=== PATIENT | female | born 1975 | race Caucasian/White ===

== ENCOUNTER 2024-01-15 01:02 | Emergency (ER) | payer OTHER ==
[~2024-01-15] VITALS: Ht 170.2 cm; Wt 100.0 kg
[2024-01-15 01:06] VITALS: TEMP 97.6
[2024-01-15 02:00] VITALS: BP 120/69; PULSE 85; RESP 18; O2SAT 97
[2024-01-15 02:16] LABS: BASOPHILS % (AUTO) 0.6 % (0.0-2.0); EOSINOPHILS % (AUTO) 2.3 % (1.0-6.0); HEMATOCRIT 41.5 % (36-46); HEMOGLOBIN 13.6 g/dL (12.0-16.0); LYMPHOCYTES # (AUTO) 1.7 K/uL (1.0-4.8); LYMPHOCYTES % (AUTO) 25.3 % (22.0-44.0); MEAN CORPUSCULAR HEMOGLOBIN 31.2 pg (26.0-34.0); MEAN CORPUSCULAR HGB CONC 32.9 G/dL (31.0-37.0); MEAN CORPUSCULAR VOLUME 95 fL (80-100); MONOCYTES # (AUTO) 0.6 K/uL (0.1-1.0); MONOCYTES % (AUTO) 8.5 % (2.0-9.0); NEUTROPHILS # (AUTO) 4.4 K/uL (1.8-7.7); NEUTROPHILS % (AUTO) 63.3 % (40.0-70.0); PLATELET COUNT (AUTO) 254 K/uL (150-450); RED BLOOD CELL COUNT(AUTO) 4.38 MIL/uL (4.00-5.20); RED CELL DISTRIBUTION WIDTH 13.2 % (11.5-14.5); WHITE BLOOD COUNT (AUTO) 6.9 K/uL (4.5-11.0)
[2024-01-15 02:32] LABS: ANION GAP 11 mmol/L (8-16); CARBON DIOXIDE 22 mmol/L (22-29); CHLORIDE 105 mmol/L (98-107); CREATININE 1.07 mg/dL (0.60-1.30); GLOMERULAR FILTR. RATE CALC 54 mL/min (>60); GLUCOSE,RANDOM 93 mg/dL (70-110); POTASSIUM 3.7 mmol/L (3.5-5.1); SODIUM SERUM 138 mmol/L (136-145); UREA NITROGEN, BLOOD 16 mg/dL (7-18)
[2024-01-15 02:42] LABS: ALCOHOL, BLOOD (SERUM) < 3 mg/dL (0-10)
[2024-01-15] MEDS: LORazepam 2 MG TABLET PO ONE (02:50)
== END 2024-01-15 03:28 | disposition home or self-care (01) ==
LOC: EMS 01:04
DX: F32.9 Major depressive disorder, single episode, unspecified (principal); R45.851 Suicidal ideations; Q87.3 Congenital malformation syndromes involving early overgrowth; F17.210 Nicotine dependence, cigarettes, uncomplicated; F12.90 Cannabis use, unspecified, uncomplicated; Z88.5 Allergy status to narcotic agent; Z88.6 Allergy status to analgesic agent; Z91.041 Radiographic dye allergy status
CPT/HCPCS: 99284; 80048; 85025; 36415; G0480

== ENCOUNTER 2024-01-23 08:06 | Emergency (ER) | payer OTHER ==
[~2024-01-23] VITALS: Ht 172.7 cm; Wt 104.5 kg
[2024-01-23 08:20] VITALS: BP 115/64; PULSE 98; RESP 18; TEMP 98; O2SAT 98
[2024-01-23] MEDS: IBUPROFEN 600 MG TABLET PO ONE (11:59)
[2024-01-23] MEDS ORDERED: IBUP-1492 PO (12:13)
== END 2024-01-23 12:24 | disposition home or self-care (01) ==
LOC: EMS 08:06
DX: M79.18 Myalgia, other site (principal); F17.210 Nicotine dependence, cigarettes, uncomplicated; Z88.5 Allergy status to narcotic agent; Z88.6 Allergy status to analgesic agent; Z91.041 Radiographic dye allergy status
CPT/HCPCS: 99282; Z7502; Z7610

== ENCOUNTER → 2024-02-25 | Emergency (ER) | payer OTHER ==
[~2024-02-25] VITALS: Ht 170.2 cm; Wt 100.0 kg
[~2024-02-25] MED LIST: BUPR-562 PO; CLOT15CR29 TP; IBUP-1492 PO
[2024-02-25 08:49] LABS: COVID AG,FIA SOURCE NASAL SWAB
[2024-02-25 09:23] LABS: SARS-COV2 (COVID) ANTIGEN,FIA Negative (Negative)
[2024-02-25 09:24] LABS: INFLUENZA TYPE A NEGATIVE FOR TYPE A (NEGATIVE); INFLUENZA TYPE B NEGATIVE FOR TYPE B (NEGATIVE)
[2024-02-25 09:45] VITALS: BP 112/74; PULSE 94; RESP 18; TEMP 97.6; O2SAT 97
== END | disposition still patient (30) ==
LOC: EMS 08:22
DX: L30.4 Erythema intertrigo (principal); F17.210 Nicotine dependence, cigarettes, uncomplicated; G25.81 Restless legs syndrome; Z88.5 Allergy status to narcotic agent; Z88.8 Allergy status to other drugs, medicaments and biological substances; Z91.041 Radiographic dye allergy status; Z91.040 Latex allergy status; Z20.822 Contact with and (suspected) exposure to COVID-19
CPT/HCPCS: 87804; 99283

== ENCOUNTER 2024-04-07 11:25 | Emergency (ER) | payer OTHER ==
[~2024-04-07] VITALS: Ht 170.2 cm; Wt 104.5 kg
[~2024-04-07 11:25] MED LIST changes: -IBUP-1492 PO
[2024-04-07 11:39] VITALS: TEMP 97.9
[2024-04-07] MEDS: KETOROLAC TROMETHAMINE 30 MG/ML VIAL IM ONE (12:38)
[2024-04-07] MEDS: LIDOCAINE 5% TRANSDERMAL PATCH TD ONE (12:38)
[2024-04-07] MEDS ORDERED: BACL10TA PO (13:01)
[2024-04-07 13:15] VITALS: BP 125/63; PULSE 74; RESP 16; O2SAT 97
== END 2024-04-07 13:25 | disposition home or self-care (01) ==
LOC: EMS 11:31
DX: M54.50 Low back pain, unspecified (principal); Z88.5 Allergy status to narcotic agent; Z88.8 Allergy status to other drugs, medicaments and biological substances; Z91.041 Radiographic dye allergy status; Z79.899 Other long term (current) drug therapy
CPT/HCPCS: 99283; 96372; J1885

== ENCOUNTER 2024-04-16 12:47 | Emergency (ER) | payer OTHER ==
[~2024-04-16] VITALS: Ht 172.7 cm; Wt 100.0 kg
[~2024-04-16 12:47] MED LIST changes: +BACL10TA PO
[2024-04-16 12:56] VITALS: BP 116/41; PULSE 82; RESP 18; TEMP 97.8; O2SAT 98
[2024-04-16 15:42] LABS: BASOPHILS % (AUTO) 0.6 % (0.0-2.0); EOSINOPHILS % (AUTO) 5.5 % (1.0-6.0); HEMATOCRIT 40.5 % (36-46); HEMOGLOBIN 13.4 g/dL (12.0-16.0); LYMPHOCYTES # (AUTO) 1.4 K/uL (1.0-4.8); LYMPHOCYTES % (AUTO) 21.2 % (22.0-44.0); MEAN CORPUSCULAR HEMOGLOBIN 31.2 pg (26.0-34.0); MEAN CORPUSCULAR HGB CONC 33.1 G/dL (31.0-37.0); MEAN CORPUSCULAR VOLUME 94 fL (80-100); MONOCYTES # (AUTO) 0.6 K/uL (0.1-1.0); NEUTROPHILS # (AUTO) 4.2 K/uL (1.8-7.7); NEUTROPHILS % (AUTO) 63.7 % (40.0-70.0); PLATELET COUNT (AUTO) 264 K/uL (150-450); RED CELL DISTRIBUTION WIDTH 12.7 % (11.5-14.5); WHITE BLOOD COUNT (AUTO) 6.6 K/uL (4.5-11.0)
[2024-04-16 15:53] LABS: CALCIUM, TOTAL 8.9 mg/dL (8.8-10.5); CREATININE 1.08 mg/dL (0.60-1.30)
[2024-04-16 16:00] LABS: TROPONIN I-HIGH SENSITIVITY 5 ng/L (<51)
[2024-04-16] MEDS: KETOROLAC TROMETHAMINE 30 MG/ML VIAL IM ONE (16:00)
[2024-04-16 16:11] LABS: APPEARANCE,URINE CLEAR (CLEAR); BILIRUBIN,URINE NEGATIVE (NEGATIVE); COLOR,URINE LIGHT YELLOW (YELLOW); GLUCOSE, URINE (UA) NEGATIVE (NEGATIVE); KETONES,URINE NEGATIVE (NEGATIVE); LEUKOCYTE ESTERASE ,URINE TRACE (NEGATIVE); NITRATE,URINE NEGATIVE (NEGATIVE); OCCULT BLOOD,URINE NEGATIVE (NEGATIVE); PROTEIN,URINE NEGATIVE (NEGATIVE); SPECIFIC GRAVITIY, URINE 1.016 (1.003-1.030); UROBILINOGEN,URINE <=1.0 mg/dL (<=1.0)
[2024-04-16 16:23] LABS: BACTERIA,URINE Rare /HPF (None Seen); RBC,URINE None Seen /HPF (0-2); SQUAMOUS EPITHELIAL CELL,UR Rare /LPF (None Seen)
[2024-04-16] MEDS ORDERED: IBUP-1492 PO (16:39)
[2024-04-16] MEDS ORDERED: CEPH-558 PO (16:39)
== END 2024-04-16 16:58 | disposition home or self-care (01) ==
LOC: EMS 12:47
DX: M77.9 Enthesopathy, unspecified (principal); N39.0 Urinary tract infection, site not specified; F17.210 Nicotine dependence, cigarettes, uncomplicated; Z88.5 Allergy status to narcotic agent; Z88.8 Allergy status to other drugs, medicaments and biological substances; Z91.041 Radiographic dye allergy status; Z79.899 Other long term (current) drug therapy
CPT/HCPCS: 99283; 80048; 81001; 83690; 84484; 85025; 36415; 96372; J1885

== ENCOUNTER 2024-04-23 14:00 | Emergency (ER) | payer OTHER ==
[~2024-04-23] VITALS: Ht 167.6 cm; Wt 86.0 kg
[~2024-04-23 14:00] MED LIST changes: -BACL10TA PO; +CEPH-558 PO; -CLOT15CR29 TP; +IBUP-1492 PO
[2024-04-23 14:04] VITALS: BP 127/68; PULSE 102; RESP 16; TEMP 98.5; O2SAT 98
[2024-04-23 14:15] LABS: COVID AG,FIA SOURCE NASAL SWAB
[2024-04-23] MEDS ORDERED: BuPROPion HCL 75 MG TABLET PO ONE (14:45)
[2024-04-23 14:55] LABS: INFLUENZA TYPE A NEGATIVE FOR TYPE A (NEGATIVE); INFLUENZA TYPE B NEGATIVE FOR TYPE B (NEGATIVE); SARS-COV2 (COVID) ANTIGEN,FIA Negative (Negative)
[2024-04-23] MEDS: LORazepam 1 MG TABLET PO ONE (14:59)
[2024-04-23] MEDS: BuPROPion HCL XL 150 MG ER TABLET PO ONE (15:00)
== END 2024-04-23 15:59 | disposition home or self-care (01) ==
LOC: EMS 14:00
DX: F41.9 Anxiety disorder, unspecified (principal); F17.210 Nicotine dependence, cigarettes, uncomplicated; Z79.899 Other long term (current) drug therapy; Z88.5 Allergy status to narcotic agent; Z88.8 Allergy status to other drugs, medicaments and biological substances; Z91.041 Radiographic dye allergy status; Z91.040 Latex allergy status; Z20.822 Contact with and (suspected) exposure to COVID-19
CPT/HCPCS: 87804; 99283

== ENCOUNTER 2024-05-11 14:50 | Emergency (ER) | payer OTHER ==
[~2024-05-11] VITALS: Ht 170.2 cm; Wt 104.5 kg
[2024-05-11 14:55] VITALS: TEMP 98.5
[2024-05-11] MEDS ORDERED: DULO-114 PO (14:58)
[2024-05-11 15:11] LABS: COVID AG,FIA SOURCE NASAL SWAB
[2024-05-11 15:43] LABS: SARS-COV2 (COVID) ANTIGEN,FIA Negative (Negative)
[2024-05-11 15:47] LABS: INFLUENZA TYPE A NEGATIVE FOR TYPE A (NEGATIVE); INFLUENZA TYPE B NEGATIVE FOR TYPE B (NEGATIVE)
[2024-05-11 17:00] VITALS: BP 132/74; PULSE 93; RESP 20; O2SAT 99
[2024-05-11] MEDS: KETOROLAC TROMETHAMINE 60 MG/2 ML VIAL IM ONE (17:17)
[2024-05-11] MEDS: ACETAMINOPHEN/CODEINE 300-30 MG TABLET PO ONE (17:17)
[2024-05-11] MEDS ORDERED: IBUP-1554 PO (17:20)
[2024-05-11] MEDS ORDERED: GUAIFDM PO (17:20)
[2024-05-11] MEDS ORDERED: ACET-2080 PO (17:20)
[2024-05-11] MEDS ORDERED: OMEP20 PO (17:20)
== END 2024-05-11 17:44 | disposition home or self-care (01) ==
LOC: EMS 14:50
DX: G44.091 Other trigeminal autonomic cephalgias (TAC), intractable (principal); J20.9 Acute bronchitis, unspecified; R05.9 Cough, unspecified; Z88.5 Allergy status to narcotic agent; Z88.8 Allergy status to other drugs, medicaments and biological substances; Z91.041 Radiographic dye allergy status; Z79.899 Other long term (current) drug therapy; Z20.822 Contact with and (suspected) exposure to COVID-19
CPT/HCPCS: 99283; 87426; 87804; 96372; J1885

== ENCOUNTER 2024-07-15 09:25 | Emergency (ER) | payer OTHER ==
[~2024-07-15] VITALS: Ht 170.2 cm; Wt 104.5 kg
[~2024-07-15 09:25] MED LIST changes: +ACET-2080 PO; -CEPH-558 PO; +DULO-114 PO; +GUAIFDM PO; -IBUP-1492 PO; +IBUP-1554 PO; +OMEP-148 PO
[2024-07-15 09:30] VITALS: TEMP 98.2
[2024-07-15] MEDS ORDERED: METH-659 PO (10:55)
[2024-07-15 11:05] VITALS: BP 125/69; PULSE 71; RESP 17; O2SAT 99
[2024-07-15] MEDS: GuaiFENesin/D-METHORPHAN [SUGAR-FREE] 200-20MG/10 ML SYRUP UDCUP PO ONE (11:14)
[2024-07-15] MEDS: KETOROLAC TROMETHAMINE 60 MG/2 ML VIAL IM ONE (11:15)
[2024-07-15] MEDS: METHOCARBAMOL 500 MG TABLET PO ONE (11:15)
== END 2024-07-15 12:20 | disposition home or self-care (01) ==
LOC: EMS 09:31
DX: S20.212A Contusion of left front wall of thorax, initial encounter (principal); J40 Bronchitis, not specified as acute or chronic; F41.9 Anxiety disorder, unspecified; F32.A Depression, unspecified; F17.210 Nicotine dependence, cigarettes, uncomplicated; F12.90 Cannabis use, unspecified, uncomplicated; G25.81 Restless legs syndrome; Z79.899 Other long term (current) drug therapy; Z88.5 Allergy status to narcotic agent; Z88.8 Allergy status to other drugs, medicaments and biological substances; Z91.041 Radiographic dye allergy status; X58.XXXA Exposure to other specified factors, initial encounter; Y93.89 Activity, other specified; Y92.89 Other specified places as the place of occurrence of the external cause; Y99.8 Other external cause status
CPT/HCPCS: 99283; 71101; 96372; J1885

== ENCOUNTER 2024-08-04 13:13 | Emergency (ER) | payer OTHER ==
[~2024-08-04] VITALS: Ht 172.7 cm; Wt 102.3 kg
[~2024-08-04 13:13] MED LIST changes: -ACET-2080 PO; +METH-659 PO
[2024-08-04 13:17] VITALS: TEMP 98.6
[2024-08-04 13:48] LABS: COVID AG,FIA SOURCE NASAL SWAB
[2024-08-04 13:59] VITALS: BP 153/78; PULSE 103; RESP 18; O2SAT 97
[2024-08-04 14:40] LABS: SARS-COV2 (COVID) ANTIGEN,FIA Negative (Negative)
[2024-08-04 14:41] LABS: INFLUENZA TYPE A NEGATIVE FOR TYPE A (NEGATIVE); INFLUENZA TYPE B NEGATIVE FOR TYPE B (NEGATIVE)
[2024-08-04] MEDS ORDERED: FLUT16SP NASAL (15:44)
== END 2024-08-04 16:06 | disposition home or self-care (01) ==
LOC: EMS 13:15
DX: H65.92 Unspecified nonsuppurative otitis media, left ear (principal); H72.92 Unspecified perforation of tympanic membrane, left ear; F41.9 Anxiety disorder, unspecified; F32.A Depression, unspecified; F12.90 Cannabis use, unspecified, uncomplicated; F17.210 Nicotine dependence, cigarettes, uncomplicated; Z91.041 Radiographic dye allergy status; Z88.5 Allergy status to narcotic agent; Z88.8 Allergy status to other drugs, medicaments and biological substances; Z79.899 Other long term (current) drug therapy; Z72.89 Other problems related to lifestyle; Z20.822 Contact with and (suspected) exposure to COVID-19
CPT/HCPCS: 87804; 99283

== ENCOUNTER 2024-08-06 18:42 | Emergency (ER) | payer OTHER ==
[~2024-08-06] VITALS: Ht 180.3 cm; Wt 97.0 kg
[~2024-08-06 18:42] MED LIST changes: +FLUT16SP NASAL; -GUAIFDM PO
[2024-08-06 19:24] VITALS: TEMP 98.5
[2024-08-06 19:50] LABS: BASOPHILS % (AUTO) 0.8 % (0.0-2.0); EOSINOPHILS % (AUTO) 6.2 % (1.0-6.0); HEMATOCRIT 42.1 % (36-46); LYMPHOCYTES # (AUTO) 1.4 K/uL (1.0-4.8); LYMPHOCYTES % (AUTO) 27.3 % (22.0-44.0); MEAN CORPUSCULAR HEMOGLOBIN 31.2 pg (26.0-34.0); MEAN CORPUSCULAR HGB CONC 33.2 G/dL (31.0-37.0); MEAN CORPUSCULAR VOLUME 94 fL (80-100); MONOCYTES # (AUTO) 0.5 K/uL (0.1-1.0); MONOCYTES % (AUTO) 8.8 % (2.0-9.0); NEUTROPHILS % (AUTO) 56.9 % (40.0-70.0); PLATELET COUNT (AUTO) 305 K/uL (150-450); RED BLOOD CELL COUNT(AUTO) 4.49 MIL/uL (4.00-5.20); RED CELL DISTRIBUTION WIDTH 12.9 % (11.5-14.5); WHITE BLOOD COUNT (AUTO) 5.3 K/uL (4.5-11.0)
[2024-08-06 19:59] LABS: CALCIUM, TOTAL 9.2 mg/dL (8.8-10.5); CREATININE 1.16 mg/dL (0.60-1.30); POTASSIUM 4.3 mmol/L (3.5-5.1)
[2024-08-06 20:04] LABS: APPEARANCE,URINE CLEAR (CLEAR); BILIRUBIN,URINE NEGATIVE (NEGATIVE); COLOR,URINE LIGHT YELLOW (YELLOW); GLUCOSE, URINE (UA) NEGATIVE (NEGATIVE); KETONES,URINE NEGATIVE (NEGATIVE); LEUKOCYTE ESTERASE ,URINE NEGATIVE (NEGATIVE); NITRATE,URINE NEGATIVE (NEGATIVE); OCCULT BLOOD,URINE NEGATIVE (NEGATIVE); PH,URINE 5.5 (5.0-8.0); PROTEIN,URINE NEGATIVE (NEGATIVE); SPECIFIC GRAVITIY, URINE 1.026 (1.003-1.030); UROBILINOGEN,URINE <=1.0 mg/dL (<=1.0)
[2024-08-06 20:04] LABS: ALBUMIN 3.2 g/dL (3.4-5.0); BILIRUBIN,DIRECT 0.1 mg/dL (0.00-0.20); BILIRUBIN,TOTAL 0.2 mg/dL (0.1-1.0); TOTAL PROTEIN, SERUM 7.3 g/dL (6.4-8.2)
[2024-08-06 21:41] VITALS: BP 111/74; PULSE 88; RESP 16; O2SAT 98
== END 2024-08-06 21:59 | disposition home or self-care (01) ==
LOC: EMS 18:42
DX: M54.50 Low back pain, unspecified (principal); F12.90 Cannabis use, unspecified, uncomplicated; F17.210 Nicotine dependence, cigarettes, uncomplicated; F32.A Depression, unspecified; F41.9 Anxiety disorder, unspecified; Z88.5 Allergy status to narcotic agent; Z88.8 Allergy status to other drugs, medicaments and biological substances; Z91.041 Radiographic dye allergy status; Z79.899 Other long term (current) drug therapy
CPT/HCPCS: 80048; 80076; 81003; 83690; 85025; 99283

== ENCOUNTER 2024-08-17 09:20 | Emergency (ER) | payer OTHER ==
[~2024-08-17] VITALS: Ht 172.7 cm; Wt 112.0 kg
[~2024-08-17 09:20] MED LIST changes: -BUPR-562 PO; +BUPR-722 PO
[2024-08-17 09:30] VITALS: TEMP 98.3
[2024-08-17 09:45] VITALS: BP 120/82; PULSE 105; RESP 16; O2SAT 98
[2024-08-17] MEDS ORDERED: IBUP-1492 PO (10:10)
[2024-08-17] MEDS: KETOROLAC TROMETHAMINE 60 MG/2 ML VIAL IM ONE (10:10)
[2024-08-17] MEDS ORDERED: METH-659 PO (10:10)
[2024-08-17] MEDS: METHOCARBAMOL 500 MG TABLET PO ONE (10:10)
[2024-08-17] MEDS ORDERED: LIDO700A15 TP (10:11)
[2024-08-17] MEDS: LIDOCAINE 5% TRANSDERMAL PATCH TD ONE (10:11)
== END 2024-08-17 10:25 | disposition home or self-care (01) ==
LOC: EMS 09:20
DX: M54.42 Lumbago with sciatica, left side (principal); F41.9 Anxiety disorder, unspecified; F32.A Depression, unspecified; F12.90 Cannabis use, unspecified, uncomplicated; F17.210 Nicotine dependence, cigarettes, uncomplicated; Z88.8 Allergy status to other drugs, medicaments and biological substances; Z88.5 Allergy status to narcotic agent; Z79.899 Other long term (current) drug therapy; Z91.041 Radiographic dye allergy status; Z79.1 Long term (current) use of non-steroidal anti-inflammatories (NSAID); Z72.89 Other problems related to lifestyle
CPT/HCPCS: 99283; 96372; J1885